=== PATIENT | male | born 1995 | race Caucasian/White ===

== ENCOUNTER 2017-06-07 10:16 | Emergency (ER) | payer BC ==
[2017-06-07 10:27] VITALS: RESP 16; O2SAT 96
[2017-06-07] MEDS ORDERED: NS 1,000 ML IV ONE (11:02)
[2017-06-07] MEDS ORDERED: NICOTINE 21 MG/24 HR PATCH TD ONE (11:03)
--- NOTE | 2017-06-07 11:04 | EDPHY ---
General Narrative: CHIEF COMPLAINT: Right-sided chest pain/lung pain HISTORY OF PRESENT ILLNESS: Patient complains of right-sided lung and chest pain. This started 6 days ago. Constant duration. At 1st it was mild now it is moderate. Worse when he does not smoke. Improves when he smokes. He coughs when he is not smoking. No fever or chills. Also worse with inspiration. Associates it with some difficulty inflating the right lung as he reports paradoxical movements of the chest. No trauma or injury. No recent travel or surgery. No history of venous thrombolic event. He does endorse previous IV drug abuse including heroin, methamphetamine and cocaine. He reports being clean for 47 days. No other associated complaints or modifying factors. I have been notified by RN that the patient has been route to them and has been frequently asking to go outside to smoke. REVIEW OF SYSTEMS: Ten systems reviewed and are negative unless otherwise noted in the HPI PCP: None SPECIALISTS: None PAST MEDICAL HISTORY: Former IV drug abuse. Currently taking naltrexone for this PAST SURGICAL HISTORY: Reviewed. None recent SOCIAL HISTORY: Heavy smoker. Occasional alcohol. Former IV drug abuser. Forty-seven days clean FAMILY HISTORY: Noncontributory EXAMINATION General Appearance: Alert, no distress Head: normocephalic, atraumatic Eyes: Pupils equal and round, no conjunctival pallor or injection ENT, Mouth: Mucous membranes moist. Uvula midline. Neck: Normal inspection, supple, non-tender Respiratory: Lungs are clear to auscultation. No wheezing, rhonchi or crackles. No crepitus. No tenderness of the right ribs. No retractions or distress. No paradoxical movements. Cardiovascular: Regular rate and rhythm. No murmur Gastrointestinal: Abdomen is soft and nontender Back: non-tender, no bony abnormalities Neurological: A&O, nonfocal, normal gait Skin: Warm and dry, no rash Extremities: Nontender, no pedal edema Psychiatric: Mood and affect normal DIFFERENTIAL DIAGNOSES: Including but not limited to pneumonia, pneumonitis, PE, bronchitis, pleurisy, empyema MDM: 11:00 a.m. Right-sided chest pain in a patient with a history of IV drug abuse in the past. This is a pleuritic type pain. He is PERC negative, and my clinical suspicion is very low for PE. Thus I have ordered a D-dimer instead of a chest CT. Chest x-ray and labs are pending. I have ordered a nicotine patch as he has been asking several times to go outside and smoke. He has agreed to stay in his room with this. He is in no acute distress. Vital signs stable. 11:45 a.m. Patient re-evaluated. Resting comfortably. Laboratory studies pending 12:15 p.m. Patient re-evaluated. Laboratory studies are negative including a negative D- dimer. Chest x-ray does not reveal any evidence of pneumonia, pneumothorax or hemothorax. I suspect this is likely a pleurisy. This is all right-sided. Vital signs are stable. All treated with high-dose anti-inflammatories. He has an appointment on Monday with a new physician that he will be seen for the 1st time. We discussed ED precautions. He is comfortable this plan and discharged in stable condition. - Diagnostics Imaging Results: Imaging Impressions Chest X-Ray 06/07/17 11:03 Impression: Mild airways disease. Otherwise normal. - History Smoking Status: Current every day smoker - Objective Vital Signs: Initial Vital Signs Temperature (C) 97.3 F 06/07/17 10:17 Heart Rate 80 06/07/17 10:17 Respiratory Rate 16 06/07/17 10:17 Blood Pressure 155/79 H 06/07/17 10:17 O2 Sat (%) 96 06/07/17 10:17 O2 Delivery Mode Room Air Allergies/Adverse Reactions: No Known Allergies Allergy (Unverified 06/07/17 10:27) Home Medications: Medication Instructions Recorded FLUoxetine [PROzac] 20 mg PO 06/07/17 Gabapentin [Neurontin 400 MG (*)] 400 mg PO 06/07/17 Ibuprofen 800 mg PO Q8 PRN #21 tablet 06/07/17 Mirtazapine [Remeron soltab 15 mg 30 mg PO DAILY 06/07/17 (*)] Naltrexone HCl 50 mg PO 06/07/17 Laboratory Results: Laboratory Results 06/07/17 11:11 06/07/17 11:11 06/07/17 06/07/17 06/07/17 11:11 11:11 11:11 WBC 4.21 10^3/uL 10^3/uL (3.80-9.50) RBC 5.03 10^6/uL 10^6/uL (4.40-6.38) Hgb 17.0 g/dL g/dL (13.7-17.5) Hct 47.3 % % (40.0-51.0) MCV 94.0 fL fL (81.5-99.8) MCH 33.8 pg pg (27.9-34.1) MCHC 35.9 g/dL g/dL (32.4-36.7) RDW 12.2 % % (11.5-15.2) Plt Count 155 10^3/uL 10^3/uL (150-400) MPV 9.9 fL fL (8.7-11.7) Neut % (Auto) 54.2 % % (39.3-74.2) Lymph % (Auto) 35.6 % % (15.0-45.0) [place] % (Auto) 6.2 % % (4.5-13.0) Eos % (Auto) 2.6 % % (0.6-7.6) Baso % (Auto) 1.2 % % (0.3-1.7) Nucleat RBC Rel Count 0.0 % % (0.0-0.2) Absolute Neuts (auto) 2.28 10^3/uL 10^3/uL (1.70-6.50) Absolute Lymphs (auto) 1.50 10^3/uL 10^3/uL (1.00-3.00) Absolute Monos (auto) 0.26 10^3/uL L 10^3/uL (0.30-0.80) Absolute Eos (auto) 0.11 10^3/uL 10^3/uL (0.03-0.40) Absolute Basos (auto) 0.05 10^3/uL 10^3/uL (0.02-0.10) Absolute Nucleated RBC 0.00 10^3/uL 10^3/uL (0-0.01) Immature Gran % 0.2 % % (0.0-1.1) Immature Gran # 0.01 10^3/uL 10^3/uL (0.00-0.10) D-Dimer < 0.27 ug/mLFEU ug/mLFEU (0.00-0.50) Sodium 141 mEq/L mEq/L (134-144) Potassium 3.9 mEq/L mEq/L (3.5-5.2) Chloride 105 mEq/L mEq/L (97-110) Carbon Dioxide 24 mEq/l mEq/l (22-31) Anion Gap 12 mEq/L mEq/L (8-16) BUN 15 mg/dL mg/dL (7-23) Creatinine 1.0 mg/dL mg/dL (0.7-1.3) Estimated GFR > 60 Glucose 133 mg/dL H mg/dL (70-100) Calcium 9.3 mg/dL mg/dL (8.5-10.4) Total Bilirubin 0.4 mg/dL mg/dL (0.1-1.4) Conjugated Bilirubin 0.1 mg/dL mg/dL (0.0-0.5) Unconjugated Bilirubin 0.3 mg/dL mg/dL (0.0-1.1) AST 27 IU/L IU/L (17-59) ALT 34 IU/L IU/L (21-72) Alkaline Phosphatase 63 IU/L IU/L (38-126) Troponin I < 0.012 ng/mL ng/mL (0.000-0.034) Total Protein 6.9 g/dL g/dL (6.3-8.2) Albumin 4.5 g/dL g/dL (3.5-5.0) Lipase 105 IU/L IU/L (23-300) Medications Given: Discontinued Medications Sodium Chloride (Ns) 1,000 mls @ 0 mls/hr IV EDNOW ONE; Wide Open PRN Reason: Protocol Stop: 06/07/17 11:03 Last Admin: 06/07/17 11:35 Dose: 1,000 mls Nicotine (Nicoderm Cq) 21 mg TD EDNOW ONE Stop: 06/07/17 11:04 Last Admin: 06/07/17 11:32 Dose: 21 mg Departure - Departure Disposition: Home, Routine, Self-Care Clinical Impression: Acute chest pain, Pleurisy Condition: Good Instructions: Pleurisy (ED), Chest Pain (ED) Additional Instructions: 1. Medication as prescribed to completion 2. Recommend smoking cessation 3. Keep your appointment on Monday with your new physician 4. ED precautions Referrals: Alberto Worthy DO [Doctor of Osteopathy] - As per Instructions Prescriptions: Ibuprofen 800 mg PO Q8 PRN #21 tablet PRN Reason: Pain, Breakthrough
--- NOTE | 2017-06-07 11:09 | CPEKG ---
Heart Rate: 75 RR Interval: 800 P-R Interval: 144 QRSD Interval: 94 QT Interval: 364 QTC Interval: 407 P [place]: 64 QRS [place]: 69 T Wave [place]: 22 EKG Severity - NORMAL ECG - EKG Impression: SINUS RHYTHM Electronically Signed By: Oralia Reyes 08-Jun-2017 10:35:41
[2017-06-07 11:19] LABS: % IMMATURE GRANULYOCYTES 0.2 % (0.0-1.1); ABSOLUTE IMMATURE GRANULOCYTES 0.01 10^3/uL (0.00-0.10); ADD DIFF? NO; ADD MORPH? NO; ADD SCAN? NO; ATYPICAL LYMPHOCYTE FLAG 10 (0-99); FRAGMENT RBC FLAG 0 (0-99); HEMATOCRIT 47.3 % (40.0-51.0); LEFT SHIFT FLG 0 (0-99); LIPEMIA HEMOLYSIS FLAG 90 (0-99); MEAN CELL HEMOGLOBIN 33.8 pg (27.9-34.1); MEAN CELL HEMOGLOBIN CONCENTR. 35.9 g/dL (32.4-36.7); MEAN PLATELET VOLUME 9.9 fL (8.7-11.7); PLATELET CLUMPS FLAG 0 (0-99); PLATELET COUNT 155 10^3/uL (150-400); RED BLOOD CELL COUNT 5.03 10^6/uL (4.40-6.38); RED CELL DISTRIBUTION WIDTH 12.2 % (11.5-15.2)
[2017-06-07 11:35] LABS: ALANINE AMINOTRANSFERASE 34 IU/L (21-72); ALBUMIN 4.5 g/dL (3.5-5.0); ALKALINE PHOSPHATASE 63 IU/L (38-126); ANION GAP 12 mEq/L (8-16); ASPARTATE AMINOTRANSFERASE 27 IU/L (17-59); BILIRUBIN,TOTAL 0.4 mg/dL (0.1-1.4); BILIRUBIN-CONJUGATED 0.1 mg/dL (0.0-0.5); BILIRUBIN-UNCONJUGATED 0.3 mg/dL (0.0-1.1); CALCIUM 9.3 mg/dL (8.5-10.4); CARBON DIOXIDE 24 mEq/l (22-31); CHLORIDE 105 mEq/L (97-110); GLOMERULAR FILTRATION RATE > 60; GLUCOSE 133 mg/dL (70-100); POTASSIUM 3.9 mEq/L (3.5-5.2); SODIUM 141 mEq/L (134-144); TOTAL PROTEIN 6.9 g/dL (6.3-8.2)
[2017-06-07 11:45] LABS: TROPONIN I < 0.012 ng/mL (0.000-0.034)
[2017-06-07 12:14] VITALS: BP 148/83; PULSE 90
[2017-06-07 12:19] VITALS: TEMP 98.2
== END 2017-06-07 12:37 | disposition home or self-care (01) ==
DX: R07.9 Chest pain, unspecified (principal); R09.1 Pleurisy; F17.200 Nicotine dependence, unspecified, uncomplicated; E86.9 Volume depletion, unspecified